=== PATIENT | female | born 1975 | race Caucasian/White ===

== ENCOUNTER → 2023-11-01 13:41 | Outpatient (REF) | payer OTHER, SELFPAY | LOC: HWRAD 13:41 | PROVIDERS: ATTENDING PHYSICIAN Physician Assistant; FAMILY PHYSICIAN Student in an Organized Health Care Education/Training Program | DX: R14.0 Abdominal distension (gaseous) (principal) | CPT/HCPCS: 76700 ==

== ENCOUNTER → 2023-12-27 13:39 | Outpatient (REF) | payer OTHER, SELFPAY | LOC: RCS 13:39 | PROVIDERS: ATTENDING PHYSICIAN Internal Medicine Cardiovascular Disease; FAMILY PHYSICIAN Student in an Organized Health Care Education/Training Program | DX: R07.2 Precordial pain (principal) | CPT/HCPCS: 93017 ==

== ENCOUNTER → 2024-01-18 13:04 | Outpatient (REF) | payer OTHER, SELFPAY | LOC: RCS 13:04 | PROVIDERS: ATTENDING PHYSICIAN Internal Medicine Cardiovascular Disease | DX: R06.09 Other forms of dyspnea (principal); R07.2 Precordial pain | CPT/HCPCS: 93306 ==

== ENCOUNTER → 2024-04-25 08:23 | Outpatient (REF) | payer OTHER, SELFPAY | LOC: WDC 08:23 | PROVIDERS: ATTENDING PHYSICIAN Obstetrics & Gynecology; FAMILY PHYSICIAN Student in an Organized Health Care Education/Training Program | DX: Z12.31 Encounter for screening mammogram for malignant neoplasm of breast (principal) | CPT/HCPCS: 77063; 77067 ==

== ENCOUNTER → 2025-04-29 08:34 | Outpatient (REF) | payer OTHER, SELFPAY | LOC: WDC 08:34 | PROVIDERS: ATTENDING PHYSICIAN Advanced Practice Midwife | DX: Z12.31 Encounter for screening mammogram for malignant neoplasm of breast (principal) | CPT/HCPCS: 77063; 77067 ==